=== PATIENT | female | born 1965 | race Hispanic/Latino ===

== ENCOUNTER 2019-04-05 16:32 | Emergency (ER) | payer MEDICAID ==
[~2019-04-05 16:32] MED LIST: CYCL5.5D; DICY10CA13 PO; LATA2.5D2 OU; LORA0.5T2 PO; METO10TA41 PO; TEMA30CA5 PO; TRAM50TA4 PO; VALP250C3 PO; VENL-63 PO; XALA2.5OS OD
[2019-04-05 17:29] LABS: BILIRUBIN,URINE Negative (NEGATIVE); COLOR,URINE Yellow (YELLOW); GLUCOSE, URINE (UA) Negative (NEGATIVE); KETONES,URINE Trace mg/dL (NEGATIVE); LEUKOCYTE ESTERASE ,URINE Trace (NEGATIVE); NITRATE,URINE Negative (NEGATIVE); OCCULT BLOOD,URINE Negative (NEGATIVE); PROTEIN,URINE Negative (NEGATIVE)
[2019-04-05 17:35] LABS: BASOPHILS % (AUTO) 0.5 % (0.0-5.0); EOSINOPHILS % (AUTO) 0.7 % (0.0-8.0); HEMATOCRIT 43.4 % (36-48); LYMPHOCYTES % (AUTO) 34.2 % (21.0-51.0); MEAN CORPUSCULAR HEMOGLOBIN 29.7 pg (27.0-33.0); MEAN CORPUSCULAR HGB CONC 34.2 g/dL (32.0-36.0); MEAN CORPUSCULAR VOLUME 86.9 fL (79-99); MONOCYTES % (AUTO) 10.6 % (3.0-13.0); PLATELET COUNT (AUTO) 153 K/uL (130-400); RED CELL DISTRIBUTION WIDTH 13.6 % (11.0-15.5); WHITE BLOOD COUNT (AUTO) 4.6 K/uL (4.8-10.8)
[2019-04-05 17:38] LABS: AMPHET/METH SCREEN,URINE NEGATIVE (NEGATIVE); BARBITURATE SCREEN, URINE NEGATIVE (NEGATIVE); BENZODIAZEPINES SCREEN,URINE NEGATIVE (NEGATIVE); CANNABINOID SCREEN,URINE POSITIVE (NEGATIVE); COCAINE SCREEN,URINE NEGATIVE (NEGATIVE); OPIATE SCREEN,URINE NEGATIVE (NEGATIVE); PHENCYCLIDINE SCREEN,URINE NEGATIVE (NEGATIVE)
[2019-04-05 17:42] LABS: APPEARANCE,URINE SLIGHTLY CLOUDY (CLEAR)
[2019-04-05 17:43] LABS: BACTERIA,URINE Few /HPF (None Seen); RBC,URINE None Seen /HPF (0-1)
[2019-04-05 17:47] LABS: CARBON DIOXIDE 26 mmol/L (21-32); CHLORIDE 106 mmol/L (101-111); CREATININE 0.7 mg/dL (0.5-1.5); GLOMERULAR FILTR. RATE CALC 93 mL/min (>60); GLUCOSE,RANDOM 129 mg/dL (70-105); POTASSIUM 4.1 mmol/L (3.5-5.1); SODIUM SERUM 144 mmol/L (136-145); UREA NITROGEN, BLOOD 11 mg/dL (7-18)
[2019-04-05 17:52] LABS: ALANINE AMINOTRANSFERASE 29 U/L (12-78); ALCOHOL, BLOOD < 3 mg/dL (0-10); ASPARTATE AMINOTRANSFERASE 25 U/L (10-37); BILIRUBIN,TOTAL 0.5 mg/dL (0.2-1.0); TOTAL PROTEIN, SERUM 7.9 g/dL (6.0-8.3)
[2019-04-05 17:54] LABS: ACETAMINOPHEN < 1 mcg/mL (10-30); SALICYLATE < 2.8 mg/dL (2.8-20.0)
== END 2019-04-05 18:34 | disposition left against medical advice (07) ==
LOC: EDH 16:32
DX: F32.9 Major depressive disorder, single episode, unspecified (principal); Z98.51 Tubal ligation status; Z88.0 Allergy status to penicillin
CPT/HCPCS: 36415; 80053; 80305; 81001; 85025; 99284; G0480 ×2; G0481

== ENCOUNTER 2019-06-16 15:44 | Emergency (ER) | payer MEDICAID | END 2019-06-16 17:07 | disposition home or self-care (01) | LOC: EDH 15:44 | DX: R05 Cough (principal); J45.909 Unspecified asthma, uncomplicated; F31.9 Bipolar disorder, unspecified; F20.9 Schizophrenia, unspecified; F12.90 Cannabis use, unspecified, uncomplicated; Z72.0 Tobacco use ==

== ENCOUNTER 2024-07-20 11:46 | Emergency (ER) | payer MEDICAID ==
[~2024-07-20] VITALS: Ht 165.1 cm; Wt 72.6 kg
[~2024-07-20 11:46] MED LIST changes: -DICY10CA13 PO; -LATA2.5D2 OU; +MOM30 PO; +OMEP40CA21 PO; -TRAM50TA4 PO; -VENL-63 PO; -XALA2.5OS OD
[2024-07-20 12:01] VITALS: TEMP 98.8
[2024-07-20 12:13] LABS: BASOPHILS # (AUTO) 0.03 K/uL (0.00-0.20); BASOPHILS % (AUTO) 0.7 % (0.0-5.0); EOSINOPHILS # (AUTO) 0.06 K/uL (0.00-0.70); EOSINOPHILS % (AUTO) 1.4 % (0.0-8.0); HEMATOCRIT 43.2 % (36-48); IMMATURE GRANULOCYTE ABSOLUTE 0.02 K/uL (0-1); LYMPHOCYTES # (AUTO) 1.5 K/uL (1.0-4.8); LYMPHOCYTES % (AUTO) 35.2 % (21.0-51.0); MEAN CORPUSCULAR HGB CONC 33.3 g/dL (32.0-36.0); MEAN CORPUSCULAR VOLUME 86.9 fL (79-99); MONOCYTES # (AUTO) 0.4 K/uL (0.1-1.0); MONOCYTES % (AUTO) 9.7 % (3.0-13.0); NEUTROPHILS # (AUTO) 2.2 K/uL (1.8-7.7); NEUTROPHILS % (AUTO) 52.5 % (40.0-77.0); PLATELET COUNT (AUTO) 154 K/uL (130-400); RED BLOOD CELL COUNT(AUTO) 4.97 MIL/uL (4.00-5.50); RED CELL DISTRIBUTION WIDTH 13.3 % (11.0-15.5); WHITE BLOOD COUNT (AUTO) 4.2 K/uL (4.8-10.8)
[2024-07-20 12:40] LABS: CARBON DIOXIDE 30 mmol/L (21-32); CHLORIDE 106 mmol/L (101-111); CREATININE 0.9 mg/dL (0.5-1.0); GLOMERULAR FILTR. RATE CALC 74 mL/min (>90); GLUCOSE,RANDOM 97 mg/dL (70-105); POTASSIUM 3.9 mmol/L (3.5-5.1); SODIUM SERUM 140 mmol/L (136-145); UREA NITROGEN, BLOOD 10 mg/dL (7-18)
[2024-07-20 12:44] LABS: ALCOHOL, BLOOD < 3 mg/dL (0-10); CREATINE KINASE, TOTAL 34 U/L (21-232)
[2024-07-20 12:51] LABS: SALICYLATE < 2.8 mg/dL (2.8-20.0)
[2024-07-20 12:52] LABS: ACETAMINOPHEN < 1 mcg/mL (10-30)
[2024-07-20 13:38] VITALS: BP 128/53; PULSE 74; RESP 20; O2SAT 98
== END 2024-07-20 14:49 | disposition left against medical advice (07) ==
LOC: EDH 11:46
DX: Z53.21 Procedure and treatment not carried out due to patient leaving prior to being seen by health care provider (principal); R45.851 Suicidal ideations
CPT/HCPCS: 36415; 80048; 85025; 82550; G0481

== ENCOUNTER 2025-01-09 22:01 | Emergency (ER) | payer MEDICAID ==
[~2025-01-09] VITALS: Ht 157.5 cm; Wt 68.0 kg
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
[2025-01-09 22:55] LABS: BASOPHILS # (AUTO) 0.02 K/uL (0.00-0.20); BASOPHILS % (AUTO) 0.3 % (0.0-5.0); EOSINOPHILS # (AUTO) 0.02 K/uL (0.00-0.70); EOSINOPHILS % (AUTO) 0.3 % (0.0-8.0); HEMATOCRIT 43.7 % (36-48); IMMATURE GRANULOCYTE ABSOLUTE 0.01 K/uL (0-1); LYMPHOCYTES # (AUTO) 1.5 K/uL (1.0-4.8); LYMPHOCYTES % (AUTO) 23.5 % (21.0-51.0); MEAN CORPUSCULAR HEMOGLOBIN 28.9 pg (27.0-33.0); MEAN CORPUSCULAR HGB CONC 34.1 g/dL (32.0-36.0); MEAN CORPUSCULAR VOLUME 84.7 fL (79-99); MONOCYTES # (AUTO) 0.6 K/uL (0.1-1.0); MONOCYTES % (AUTO) 10.1 % (3.0-13.0); NEUTROPHILS # (AUTO) 4.1 K/uL (1.8-7.7); NEUTROPHILS % (AUTO) 65.6 % (40.0-77.0); PLATELET COUNT (AUTO) 165 K/uL (130-400); RED BLOOD CELL COUNT(AUTO) 5.16 MIL/uL (4.00-5.50); RED CELL DISTRIBUTION WIDTH 12.7 % (11.0-15.5); WHITE BLOOD COUNT (AUTO) 6.3 K/uL (4.8-10.8)
[2025-01-09 23:03] LABS: CARBON DIOXIDE 32 mmol/L (21-32); CHLORIDE 101 mmol/L (101-111); CREATININE 0.6 mg/dL (0.5-1.0); GLOMERULAR FILTR. RATE CALC 103 mL/min (>90); GLUCOSE,RANDOM 114 mg/dL (70-105); SODIUM SERUM 136 mmol/L (136-145); UREA NITROGEN, BLOOD 11 mg/dL (7-18)
[2025-01-09 23:08] LABS: ALCOHOL, BLOOD 6 mg/dL (0-10); CREATINE KINASE, TOTAL 302 U/L (21-232)
[2025-01-09] MEDS: ALPRAZolam 0.5 MG TABLET PO ONE (23:09)
[2025-01-09 23:16] LABS: APPEARANCE,URINE CLOUDY (CLEAR); BILIRUBIN,URINE NEGATIVE (NEGATIVE); COLOR,URINE LIGHT-YELLOW (YELLOW); GLUCOSE, URINE (UA) NEGATIVE (NEGATIVE); KETONES,URINE NEGATIVE (NEGATIVE); LEUKOCYTE ESTERASE ,URINE NEGATIVE Leu/uL (NEGATIVE); NITRATE,URINE NEGATIVE (NEGATIVE); OCCULT BLOOD,URINE NEGATIVE (NEGATIVE); PH,URINE 6.5 (5.0-8.0); PROTEIN,URINE NEGATIVE (NEGATIVE); UROBILINOGEN,URINE 0.2 mg/dL (0.2-1.0)
[2025-01-09 23:19] LABS: ADD UA MICROSCOPIC YES
[2025-01-09 23:21] LABS: BACTERIA,URINE FEW /HPF (None Seen); SQUAMOUS EPITHELIAL CELL,UR MOD /HPF (0-2)
[2025-01-09 23:25] LABS: ACETAMINOPHEN < 1 mcg/mL (10-30); SALICYLATE < 2.8 mg/dL (2.8-20.0)
[2025-01-10] MEDS: 0.9%NACL 1000ML 1,000 ML IV ONE
[2025-01-10] MEDS: ALPRAZolam 0.5 MG TABLET PO ONE (02:29)
[2025-01-10 02:46] LABS: AMPHET/METH SCREEN,URINE NEGATIVE (NEGATIVE); BARBITURATE SCREEN, URINE NEGATIVE (NEGATIVE); BENZODIAZEPINES SCREEN,URINE POSITIVE (NEGATIVE); CANNABINOID SCREEN,URINE POSITIVE (NEGATIVE); COCAINE SCREEN,URINE POSITIVE (NEGATIVE); OPIATE SCREEN,URINE NEGATIVE (NEGATIVE); PHENCYCLIDINE SCREEN,URINE NEGATIVE (NEGATIVE)
--- NOTE | 2025-01-10 02:57 | NUR ---
[facility] CRISIS LINE CALLED, PENDING SCREENER
--- NOTE | 2025-01-10 07:00 | NUR ---
BEHAVIORAL HEALTH SCREENER [facility] AT BEDSIDE
--- NOTE | 2025-01-10 07:15 | NUR ---
THOUGHTS OF PERSECUTION. VERBALLY HOSTILE TO STAFF. DENIES SUICIDAL OR HOMICIDAL IDEATION. PACING BACK AND FORTH.
--- NOTE | 2025-01-10 07:28 | NUR ---
AT THIS TIME RESTING CALMLY ON GURNEY.
--- NOTE | 2025-01-10 07:38 | NUR ---
PER BEHAVIORAL HEALTH SCREENER [place]: PATIENT UNBALE TO PROVIDE INFORMATION AND WAS UNCOOPERATIVE. SCREENER TO RETURN LATER TODAY TO RE ATTEMPT SCREENING.
--- NOTE | 2025-01-10 08:51 | NUR ---
[facility] CONTACTED. PATIENT STATES IS READY COOPERATE WITH SCREENING. PT IS AWAKE AND ALERT. STATES IS SEEKING HELP FROM HER PROVIDER FOR A "PSYCHOTIC BREAK," PER PATIENT.
--- NOTE | 2025-01-10 09:37 | NUR ---
[place] [facility]OPICAL SCREENER AT BEDSIDE
--- NOTE | 2025-01-10 11:00 | NUR ---
NO SIGNS OR SYMPTOMS OF ACUTE DISTRESS. WILL CONTINUE TO MONITOR.
--- NOTE | 2025-01-10 13:03 | NUR ---
RESTING COMFORTABLY. NO SIGNS OF ACUTE DISTRESS. WILL CONTINUE TO MONITOR.
--- NOTE | 2025-01-10 14:06 | NUR ---
PER TROPICAL HEALTH SCREENR: PATIENT DOES NOT MEET CRITERIA FOR PLACEMENT. PATIENT REFFERED TO "[facility].
[2025-01-10 14:42] VITALS: BP 127/64; PULSE 72; RESP 14; TEMP 97.9; O2SAT 97
--- NOTE | 2025-01-10 14:56 | NUR ---
[place] [employer] EN ROUTE TO TRANSPORT PATIENT TO [facility]
--- NOTE | 2025-01-10 15:56 | NUR ---
TRANPORTED BY D OFFICER AT THIS TIME TO [facility]
== END 2025-01-10 15:56 | disposition home or self-care (01) ==
LOC: EDH 22:01
DX: F22 Delusional disorders (principal); F31.9 Bipolar disorder, unspecified; F41.9 Anxiety disorder, unspecified; Z79.621 Long term (current) use of calcineurin inhibitor; Z79.899 Other long term (current) drug therapy; Z88.0 Allergy status to penicillin; Z90.49 Acquired absence of other specified parts of digestive tract
CPT/HCPCS: 99283; 82550; 80048; 80305; 85025; 87086; 36415; 81001; G0481

== ENCOUNTER 2025-01-11 17:30 | Emergency (ER) | payer MEDICAID ==
[~2025-01-11] VITALS: Ht 160 cm; Wt 68.0 kg
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
[2025-01-11 18:13] LABS: APPEARANCE,URINE CLEAR (CLEAR); BILIRUBIN,URINE NEGATIVE (NEGATIVE); COLOR,URINE YELLOW (YELLOW); GLUCOSE, URINE (UA) NEGATIVE (NEGATIVE); KETONES,URINE 10 mg/dL (NEGATIVE); LEUKOCYTE ESTERASE ,URINE NEGATIVE Leu/uL (NEGATIVE); NITRATE,URINE NEGATIVE (NEGATIVE); OCCULT BLOOD,URINE NEGATIVE (NEGATIVE); PH,URINE 5.5 (5.0-8.0); PROTEIN,URINE 20 mg/dL (NEGATIVE); UROBILINOGEN,URINE 0.2 mg/dL (0.2-1.0)
[2025-01-11 18:15] LABS: ADD UA MICROSCOPIC YES
[2025-01-11 18:16] LABS: BACTERIA,URINE RARE /HPF (None Seen); MUCUS,URINE MANY LPF (None Seen); RBC,URINE 0-1 /HPF (0-1); SQUAMOUS EPITHELIAL CELL,UR FEW /HPF (0-2); WBC,URINE 0-1 /HPF (0-1)
[2025-01-11 18:25] LABS: AMPHET/METH SCREEN,URINE NEGATIVE (NEGATIVE); BARBITURATE SCREEN, URINE NEGATIVE (NEGATIVE); BENZODIAZEPINES SCREEN,URINE POSITIVE (NEGATIVE); CANNABINOID SCREEN,URINE POSITIVE (NEGATIVE); COCAINE SCREEN,URINE POSITIVE (NEGATIVE); OPIATE SCREEN,URINE NEGATIVE (NEGATIVE); PHENCYCLIDINE SCREEN,URINE NEGATIVE (NEGATIVE)
[2025-01-11 18:36] LABS: BASOPHILS # (AUTO) 0.02 K/uL (0.00-0.20); BASOPHILS % (AUTO) 0.3 % (0.0-5.0); EOSINOPHILS # (AUTO) 0.02 K/uL (0.00-0.70); EOSINOPHILS % (AUTO) 0.3 % (0.0-8.0); IMMATURE GRANULOCYTE ABSOLUTE 0.01 K/uL (0-1); LYMPHOCYTES # (AUTO) 1.4 K/uL (1.0-4.8); LYMPHOCYTES % (AUTO) 20.7 % (21.0-51.0); MEAN CORPUSCULAR HEMOGLOBIN 28.5 pg (27.0-33.0); MEAN CORPUSCULAR HGB CONC 34.2 g/dL (32.0-36.0); MEAN CORPUSCULAR VOLUME 83.3 fL (79-99); MONOCYTES # (AUTO) 0.8 K/uL (0.1-1.0); MONOCYTES % (AUTO) 11.7 % (3.0-13.0); NEUTROPHILS # (AUTO) 4.5 K/uL (1.8-7.7); NEUTROPHILS % (AUTO) 66.8 % (40.0-77.0); PLATELET COUNT (AUTO) 183 K/uL (130-400); RED CELL DISTRIBUTION WIDTH 12.7 % (11.0-15.5); WHITE BLOOD COUNT (AUTO) 6.7 K/uL (4.8-10.8)
[2025-01-11 18:43] LABS: CARBON DIOXIDE 31 mmol/L (21-32); CHLORIDE 99 mmol/L (101-111); CREATININE 0.8 mg/dL (0.5-1.0); GLOMERULAR FILTR. RATE CALC 85 mL/min (>90); GLUCOSE,RANDOM 116 mg/dL (70-105); POTASSIUM 3.4 mmol/L (3.5-5.1); SODIUM SERUM 137 mmol/L (136-145); UREA NITROGEN, BLOOD 17 mg/dL (7-18)
[2025-01-11 18:47] LABS: ALCOHOL, BLOOD < 3 mg/dL (0-10)
--- NOTE | 2025-01-11 18:48 | HMCIMG ---
ABD 1VW CLINICAL HISTORY: CONSTIPATION FOUR DAYS COMPARISON: None TECHNIQUE: Single view of the chest was obtained. FINDINGS: Lungs are clear. The cardiac size and mediastinum are unremarkable. The bony structures are within normal limits. IMPRESSION: No acute cardiopulmonary process identified.
[2025-01-11 18:49] LABS: ACETAMINOPHEN < 1 mcg/mL (10-30); SALICYLATE < 2.8 mg/dL (2.8-20.0)
--- NOTE | 2025-01-11 19:55 | HMCIMG ---
ABD 1VW CLINICAL HISTORY: CONSTIPATION FOUR DAYS COMPARISON: None FINDINGS: Single view of the abdomen was obtained. There are multiple air-filled prominent loops of small bowel with no obvious dilatation or obstruction. The colon appears grossly unremarkable. IMPRESSION: Findings most suggestive of enteritis.
[2025-01-11 22:02] VITALS: BP 147/71; PULSE 91; RESP 18; TEMP 98; O2SAT 98
== END 2025-01-11 22:03 | disposition home or self-care (01) ==
LOC: EDH 17:30
DX: F22 Delusional disorders (principal); F31.9 Bipolar disorder, unspecified; F19.10 Other psychoactive substance abuse, uncomplicated; K59.00 Constipation, unspecified; E87.6 Hypokalemia; F20.9 Schizophrenia, unspecified; F41.9 Anxiety disorder, unspecified; J45.909 Unspecified asthma, uncomplicated; Z79.621 Long term (current) use of calcineurin inhibitor; Z79.899 Other long term (current) drug therapy; Z88.0 Allergy status to penicillin
CPT/HCPCS: 99285; 80048; 80305; 85025; 36415; 74018 ×2; 81001; G0481; 99284

== ENCOUNTER 2025-06-20 13:54 | Emergency (ER) | payer MEDICAID ==
[~2025-06-20] VITALS: Ht 160 cm; Wt 65.8 kg
--- NOTE | 2025-06-20 13:56 | NUR ---
PT ARRIVED TO FACILITY VIA EMS. PT STATES SHE IS CURRENTLY HAVING SUICIDAL THOUGHTS WITH A PLAN IN PLACE. HER CURRENT PLAN IS TO "TAKE A BUNCH OF PILLS". DENIES HI. STATES SHE HAS BEEN HEARING VOICES SINCE YESTERDAY AND THEY ARE TELLING HER TO KILL HERSELF. PATIENT BELONGINGS HAVE BEEN GIVEN TO SECURITY. REFUSES TO BE PLACED IN PAPER SCRUBS AND REFUSES TO PROVIDE URINE SAMPLE AT THIS TIME. MD SCHUMACHER
--- NOTE | 2025-06-20 14:11 | NUR ---
PERSONAL MEDICATIONS REMOVED FROM BEDSIDE AND PLACED AT NURSES STATION. PHARMACY WAS CALLED AND PER SADIQ, MEDICATIONS CAN BE HELD AT NURSES STATION UNTIL ADMISSION IS INITIATED.
[2025-06-20 14:45] VITALS: BP 132/76; PULSE 68; RESP 20; TEMP 98.5; O2SAT 99
[2025-06-20 14:56] LABS: IMMATURE GRANULOCYTE ABSOLUTE 0.01 K/uL (0-1); NUCLEATED RED BLOOD CELLS 0.0 % (0.0-0.19); PLATELET COUNT (AUTO) 186 K/uL (130-400); RED BLOOD CELL COUNT(AUTO) 4.29 MIL/uL (4.00-5.50); RED CELL DISTRIBUTION WIDTH 12.9 % (11.0-15.5); WHITE BLOOD COUNT (AUTO) 6.1 K/uL (4.8-10.8)
[2025-06-20 15:09] LABS: CREATININE 0.6 mg/dL (0.5-1.0); GLOMERULAR FILTR. RATE CALC 103 mL/min (>90); GLUCOSE,RANDOM 99 mg/dL (70-105); SODIUM SERUM 137 mmol/L (136-145); UREA NITROGEN, BLOOD 10 mg/dL (7-18)
[2025-06-20 15:14] LABS: ALCOHOL, BLOOD < 3 mg/dL (0-10); CREATINE KINASE, TOTAL 125 U/L (21-232)
[2025-06-20 15:29] LABS: AMPHET/METH SCREEN,URINE NEGATIVE (NEGATIVE); BARBITURATE SCREEN, URINE NEGATIVE (NEGATIVE); CANNABINOID SCREEN,URINE NEGATIVE (NEGATIVE); COCAINE SCREEN,URINE POSITIVE (NEGATIVE)
--- NOTE | 2025-06-20 16:22 | NUR ---
CALLED [facility]OTLINE TO REQUEST SCREENER. PT IS CURRENTLY CALM AND COOPERATIVE AT THIS TIME.
--- NOTE | 2025-06-20 16:24 | ERN ---
General Chief Complaint: Suicidal Ideation Stated Complaint: SUICIDAL IDEATION Time Seen by MD: 13:59 History of Present Illness Initial Comments 59-year-old female history of bipolar schizophrenia who presents for suicidal ideation and auditory hallucinations. She reports that she feels paranoid. She takes multiple psychiatric medications but reports that she did not think they are working. She reports that she earlier took some cocaine to try to reduce the voices in her head. She denies any medical conditions or complaints otherwise. Allergies: Coded Allergies: Penicillins (Unverified Allergy, Unknown, 04/05/19) Home Meds Reported Medications Magnesium Hydroxide (Milk of Magnesium 30Ml) 30 Ml/Udcup Susp, 30 ML PO AD, ML 12/03/19 Omeprazole (Omeprazole) 40 Mg Capsule.dr, 40 MG PO DAILY, CAP 12/03/19 Lorazepam (Lorazepam) 0.5 Mg Tablet, 0.5 MG PO AD PRN for ANXIETY, TAB 05/14/18 Metoclopramide HCl (Reglan 10 mg Tab) 10 Mg Tablet, 10 MG PO QID, TAB 05/14/18 Temazepam (Restoril) 30 Mg Capsule, 30 MG PO HS, CAP 05/14/18 Cyclosporine (Restasis Multidose) 5.5 Ml Drops, 1 DROP .AD BID, DROP 02/16/17 Valproic Acid (Valproic Acid) 250 Mg Capsule, 250 MG PO TID, CAP 02/16/17 Past Medical History Past Medical History: Anxiety, Asthma, Bipolar, Depression, GERD, Liver Disease, Schizophrenia Past Surgical History: None Surgical History Other: BACK AND NECK PAIN Family History Family History: Negative Female( History) History: Not Applicable ROS Dictation CONSTITUTIONAL: No chills, no fever, no weakness, no diaphoresis, no malaise. HEAD/FACE: No signs of trauma. EENT: No eye pain, no blurred vision, no tearing, no double vision, no ear pain, no ear discharge, no nose pain, no nasal congestion, no throat pain, no throat swelling, no mouth pain. RESPIRATORY: No cough, no orthopnea, no SOB, no stridor, no wheezing. CARDIOVASCULAR: No chest pain, no edema, no palpitations, no syncope. GASTROINTESTINAL/ABDOMINAL: No abdominal pain, no constipation, no diarrhea, no nausea, no vomiting. GENITOURINARY: No abnormal discharge, no dysuria, no frequent urination, no hematuria. No complaints of pain in the genitals. MUSCULOSKELETAL: No back pain, no gout, no joint pain, no joint swelling, no muscle pain, no muscle stiffness, no neck pain. INTEGUMENTARY: No change in color, no change in hair/nails, no dryness, no lesion, no lumps, no rash. NEUROLOGICAL/PSYCH: No anxiety, not depressed, no emotional problem, no headache, no numbness, no pre-existing deficit, no history of seizures, no tremors, no weakness. HEMATOLOGIC/LYMPHATIC: Not anemic, no history of blood clots, no apparent bleeding, no bruising, glands not swollen. All Systems Negative, Except as Noted. Physical Exam Physical Exam Dictation VITAL SIGNS: Reviewed. GENERAL APPEARANCE: Alert, oriented x3, no acute distress. HEAD AND FACE: Non-traumatic. EYES: PERRL, pink conjunctivas, eyelid no trauma, anterior chamber clear. EARS: Pinnas intact and no signs of trauma or erythema. Ear canals clear and no discharge. TMs no erythema. NOSE: No discharge, no bleeding. OROPHARYNX: Mouth normal, teeth no caries, tongue pink. Pharynx clear, no erythema. Tonsils no exudates, no abscesses noted. Mucous membrane moist. NECK: Supple, non-tender, no thyromegaly, no masses, no JVD, no bruits. BREAST: Deferred. CHEST: No tenderness, no crepitus, no paradoxical movement, no retractions. LUNGS: Clear, well-ventilated, symmetric, no rales, no wheezing, no rhonchi, no stridor, good breath sounds bilaterally. HEART: Regular rate, regular rhythm, no murmur, no gallops. VASCULAR: No peripheral edema. ABDOMEN: Soft, positive bowel sounds, nondistended, no guarding, nontender, no rebound, no masses no hepatomegaly, no splenomegaly, no Chau's sign, no hernias. RECTAL: Deferred. GENITAL: Deferred. NEUROLOGICAL: Normal speech, gross motor function intact, gross sensory function intact. MUSCULOSKELETAL: Neck nontender, full range of motion, back nontender, full range of motion. EXTREMITIES: Nontender, full range of motion. SKIN: Color pink, dry, no turgor, no rash, no lacerations, no abrasions, no contusions. LYMPHATICS: Deferred. Results Laboratory and Microbiology Lab and Micro Result Laboratory Tests Test 06/20/25 14:17 06/20/25 15:10 White Blood Count 6.1 K/uL (4.8-10.8) Red Blood Count 4.29 MIL/uL (4.00-5.50) Hemoglobin 12.7 g/dL (12.0-16.0) Hematocrit 38.0 % (36-48) Mean Corpuscular Volume 88.6 fL (79-99) Mean Corpuscular Hemoglobin 29.6 pg (27.0-33.0) Mean Corpuscular Hemoglobin Concent 33.4 g/dL (32.0-36.0) Red Cell Distribution Width 12.9 % (11.0-15.5) Platelet Count 186 K/uL (130-400) Mean Platelet Volume 11.8 fL (7.5-10.5) H Immature Granulocyte % (Auto) 0.2 % (0-1) Neutrophils (%) (Auto) 66.6 % (40.0-77.0) Lymphocytes (%) (Auto) 19.5 % (21.0-51.0) L Monocytes (%) (Auto) 12.3 % (3.0-13.0) Eosinophils (%) (Auto) 1.1 % (0.0-8.0) Basophils (%) (Auto) 0.3 % (0.0-5.0) Neutrophils # (Auto) 4.1 K/uL (1.8-7.7) Lymphocytes # (Auto) 1.2 K/uL (1.0-4.8) Monocytes # (Auto) 0.8 K/uL (0.1-1.0) Eosinophils # (Auto) 0.07 K/uL (0.00-0.70) Basophils # (Auto) 0.02 K/uL (0.00-0.20) Absolute Immature Granulocyte (auto 0.01 K/uL (0-1) Nucleated Red Blood Cells 0.0 % (0.0-0.19) Sodium Level 137 mmol/L (136-145) Potassium Level 3.3 mmol/L (3.5-5.1) L Chloride Level 103 mmol/L (101-111) Carbon Dioxide Level 28 mmol/L (21-32) Blood Urea Nitrogen 10 mg/dL (7-18) Creatinine 0.6 mg/dL (0.5-1.0) Glomerular Filtration Rate Calc 103 mL/min (>90) Random Glucose 99 mg/dL (70-105) Total Calcium 9.5 mg/dL (8.5-10.1) Total Creatine Kinase 125 U/L (21-232) # Salicylates Level < 2.8 mg/dL (2.8-20.0) L Acetaminophen Level < 1 mcg/mL (10-30) L Serum Alcohol < 3 mg/dL (0-10) Urine Opiates Screen NEGATIVE (NEGATIVE) Urine Barbiturates Screen NEGATIVE (NEGATIVE) Urine Phencyclidine Screen NEGATIVE (NEGATIVE) Urine Amphetamines Screen NEGATIVE (NEGATIVE) Urine Benzodiazepines Screen NEGATIVE (NEGATIVE) Urine Cocaine Screen POSITIVE (NEGATIVE) H Urine Marijuana (THC) Screen NEGATIVE (NEGATIVE) MDM CC: Auditory hallucinations suicidal ideation Historian: Patient Comorbidities: Depression, bipolar disorder, anxiety, schizophrenia, liver disease Limitations by social determinants of health: None Differential diagnosis: SI, HI, drug abuse, other. Clinical exam patient appears to be having a psych your up she had disorder. There was no signs of physical injury or trauma or other illness. Vital signs: Stable, remained stable here in the ER. Labs normal CBC, normal chemistry, salicylate Tylenol, alcohol level is negative. UDS positive for cocaine, patient endorses this. No other imaging indicated Labs interpreted by me Patient is medically cleared. Patient given olanzapine oral here in the ER. While the patient was pending evaluation from [facility], the patient reports she wants to leave. She is no longer suicidal. She has no plan. We will DC. ED Course Orders Procedure Category Date Status Time Cbc With Differential LAB 06/20/25 Complete 14:01 Alcohol, Blood LAB 06/20/25 Complete 14:01 Salicylate LAB 06/20/25 Complete 14:01 Acetaminophen LAB 06/20/25 Complete 14:01 Creatine Kinase, Total LAB 06/20/25 Complete 14:01 Basic Metabolic Panel LAB 06/20/25 Complete 14:01 Drug Screen Urine LAB 06/20/25 Complete 14:01 Olanzapine 5 Mg Tab PHA 06/20/25 Complete (Zyprexa 5 Mg Tab) 14:30 Current Medications Medications (Trade) Dose Ordered Sig/Fran Route PRN Reason Start Time Stop Time Status Last Admin Dose Admin Olanzapine (ZyPREXA 5 mg tab) 10 mg ONCE ONCE PO 06/20/25 14:30 06/20/25 14:31 DC 06/20/25 14:18 Vital Signs Date Time Temp Pulse Resp B/P (MAP) Pulse Ox O2 Delivery O2 Flow Rate FiO2 06/20/25 14:45 98.4 68 20 132/76 99 Room Air* 0 21 06/20/25 13:56 98.8 75 20 135/84 98 Room Air DX & DISP Disposition: AMA Departure Impression: Primary Impression: Suicidal ideation Additional Impressions: Polydrug abuse, Bipolar disorder, Psychosis Condition: Against Medical Advice Referrals: ALYSSA MARTÍNEZ MD (PCP) DEB BLANCO DO Jun 20, 2025 16:24
--- NOTE | 2025-06-20 16:39 | NUR ---
PT IS CURRENTLY STATING SHE WISHES TO GO HOME. PT STATES "NOBODY IS DOING ANYTHING FOR ME IN THIS FACILITY AND I NEED TO TAKE CARE OF MYSELF." PT WAS EDUCATED ON RISKS OF LEAVING THE FACILITY AGAINST MEDICAL ADVICE AND WAS ADVISED THAT THE SCREENER FOR [facility] WAS ALREADY ON THEIR WAY. PT REFUSES TO STAY. AMA FORM PRESENTED.
--- NOTE | 2025-06-20 17:14 | NUR ---
[facility] MADE AWARE OF PATIENT LEAVING FACILITY AMA. SPOKE WITH JARROD FROM [facility].
== END 2025-06-20 17:17 | disposition left against medical advice (07) ==
LOC: EDH 13:54
DX: R45.851 Suicidal ideations (principal); F31.9 Bipolar disorder, unspecified; F20.9 Schizophrenia, unspecified; F41.9 Anxiety disorder, unspecified; Z79.621 Long term (current) use of calcineurin inhibitor; J45.909 Unspecified asthma, uncomplicated; K21.9 Gastro-esophageal reflux disease without esophagitis; Z88.0 Allergy status to penicillin; Z79.899 Other long term (current) drug therapy
CPT/HCPCS: 99283; 82550; 80048; 80305; 85025; 36415; G0481

== ENCOUNTER 2025-08-18 14:14 | Emergency (ER) | payer MEDICAID ==
[~2025-08-18] VITALS: Ht 160 cm; Wt 68.0 kg
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
[2025-08-18 15:04] LABS: APPEARANCE,URINE TURBID (CLEAR); GLUCOSE, URINE (UA) NEGATIVE (NEGATIVE); LEUKOCYTE ESTERASE ,URINE NEGATIVE Leu/uL (NEGATIVE); NITRATE,URINE NEGATIVE (NEGATIVE); OCCULT BLOOD,URINE NEGATIVE (NEGATIVE)
[2025-08-18 15:06] LABS: ADD UA MICROSCOPIC YES
[2025-08-18 15:09] LABS: SQUAMOUS EPITHELIAL CELL,UR FEW /HPF (0-2); WBC CLUMP FEW /HPF (0-1)
[2025-08-18 15:11] LABS: AMPHET/METH SCREEN,URINE NEGATIVE (NEGATIVE); BARBITURATE SCREEN, URINE NEGATIVE (NEGATIVE); CANNABINOID SCREEN,URINE NEGATIVE (NEGATIVE); COCAINE SCREEN,URINE POSITIVE (NEGATIVE)
[2025-08-18 15:13] LABS: IMMATURE GRANULOCYTE ABSOLUTE 0.02 K/uL (0-1); NUCLEATED RED BLOOD CELLS 0.0 % (0.0-0.19); PLATELET COUNT (AUTO) 196 K/uL (130-400); RED BLOOD CELL COUNT(AUTO) 4.56 MIL/uL (4.00-5.50); RED CELL DISTRIBUTION WIDTH 13.2 % (11.0-15.5); WHITE BLOOD COUNT (AUTO) 6.6 K/uL (4.8-10.8)
[2025-08-18 15:21] LABS: CREATININE 0.8 mg/dL (0.5-1.0); GLOMERULAR FILTR. RATE CALC 84 mL/min (>90); GLUCOSE,RANDOM 84 mg/dL (70-105); SODIUM SERUM 144 mmol/L (136-145); UREA NITROGEN, BLOOD 13 mg/dL (7-18)
[2025-08-18 15:25] LABS: ALCOHOL, BLOOD < 3 mg/dL (0-10)
[2025-08-18 17:20] VITALS: BP 136/87; PULSE 84; RESP 20; TEMP 98.2; O2SAT 97
--- NOTE | 2025-08-18 17:20 | NUR ---
PT AMBULATING WITHOUT ASSISTANCE,NAD,NO IV IN PLACE.
== END 2025-08-18 17:21 | disposition home or self-care (01) ==
LOC: EDH 14:14
DX: F14.10 Cocaine abuse, uncomplicated (principal); F20.9 Schizophrenia, unspecified; F41.9 Anxiety disorder, unspecified; J45.909 Unspecified asthma, uncomplicated; F31.9 Bipolar disorder, unspecified; Z88.0 Allergy status to penicillin; K21.9 Gastro-esophageal reflux disease without esophagitis; Z79.899 Other long term (current) drug therapy; Z79.621 Long term (current) use of calcineurin inhibitor
CPT/HCPCS: 99283; 80048; 80305; 85025; 87086; 36415; 81001; G0481

== ENCOUNTER 2025-08-31 12:31 | Emergency (ER) | payer MEDICAID ==
[~2025-08-31] VITALS: Ht 170.2 cm; Wt 74.8 kg
[2025-08-31 13:04] LABS: IMMATURE GRANULOCYTE ABSOLUTE 0.01 K/uL (0-1); NUCLEATED RED BLOOD CELLS 0.0 % (0.0-0.19); PLATELET COUNT (AUTO) 149 K/uL (130-400); RED BLOOD CELL COUNT(AUTO) 4.44 MIL/uL (4.00-5.50); RED CELL DISTRIBUTION WIDTH 13.1 % (11.0-15.5); WHITE BLOOD COUNT (AUTO) 5.3 K/uL (4.8-10.8)
[2025-08-31 13:14] LABS: CREATININE 0.7 mg/dL (0.5-1.0); GLOMERULAR FILTR. RATE CALC 99 mL/min (>90); GLUCOSE,RANDOM 104 mg/dL (70-105); SODIUM SERUM 141 mmol/L (136-145); UREA NITROGEN, BLOOD 16 mg/dL (7-18)
[2025-08-31 13:19] LABS: ALCOHOL, BLOOD < 3 mg/dL (0-10); CREATINE KINASE, TOTAL 134 U/L (21-232)
[2025-08-31] MEDS: 0.9%NACL 1000ML 1,000 ML IV ONE (13:35)
[2025-08-31 13:53] LABS: APPEARANCE,URINE CLEAR (CLEAR); GLUCOSE, URINE (UA) NEGATIVE (NEGATIVE); LEUKOCYTE ESTERASE ,URINE NEGATIVE Leu/uL (NEGATIVE); NITRATE,URINE NEGATIVE (NEGATIVE); OCCULT BLOOD,URINE NEGATIVE (NEGATIVE)
[2025-08-31 13:57] LABS: ADD UA MICROSCOPIC NO
[2025-08-31 14:01] LABS: AMPHET/METH SCREEN,URINE NEGATIVE (NEGATIVE); BARBITURATE SCREEN, URINE NEGATIVE (NEGATIVE); CANNABINOID SCREEN,URINE NEGATIVE (NEGATIVE); COCAINE SCREEN,URINE POSITIVE (NEGATIVE)
--- NOTE | 2025-08-31 14:15 | HMCIMG ---
EXAM: CR Chest, 1 View. CLINICAL HISTORY: CP COMPARISON: None provided. FINDINGS: LUNGS: There is no mass, infiltrate, or acute pulmonary abnormality. PLEURAL SPACES: No evidence of pleural effusion or pneumothorax. MEDIASTINUM: The cardiomediastinal silhouette is within normal limits. BONES: No acute osseous abnormality. IMPRESSION: 1. No acute cardiopulmonary findings. /Skipwith
--- NOTE | 2025-08-31 17:16 | ERN ---
General Chief Complaint: Medical Clearance Stated Complaint: LETHARGIC Time Seen by MD: 12:32 Source: patient History of Present Illness Initial Comments PATIENT IS A 60-YEAR-OLD FEMALE COMING IN TO BE MEDICALLY SCREENED FOR PSYCHIATRIC INCARCERATION. PER PATIENT SHE HAS BEEN DOING UNKNOWN SUBSTANCE AND CAME IN FOR FURTHER EVALUATION. Allergies: Coded Allergies: Penicillins (Unverified Allergy, Unknown, 04/05/19) Home Meds Reported Medications Magnesium Hydroxide (Milk of Magnesium 30Ml) 30 Ml/Udcup Susp, 30 ML PO AD, ML 12/03/19 Omeprazole (Omeprazole) 40 Mg Capsule.dr, 40 MG PO DAILY, CAP 12/03/19 Lorazepam (Lorazepam) 0.5 Mg Tablet, 0.5 MG PO AD PRN for ANXIETY, TAB 05/14/18 Metoclopramide HCl (Reglan 10 mg Tab) 10 Mg Tablet, 10 MG PO QID, TAB 05/14/18 Temazepam (Restoril) 30 Mg Capsule, 30 MG PO HS, CAP 05/14/18 Cyclosporine (Restasis Multidose) 5.5 Ml Drops, 1 DROP .AD BID, DROP 02/16/17 Valproic Acid (Valproic Acid) 250 Mg Capsule, 250 MG PO TID, CAP 02/16/17 Past Medical History Past Medical History: Anxiety, Asthma, Bipolar, Depression, GERD, Liver Disease, Schizophrenia Past Surgical History: None Surgical History Other: BACK AND NECK PAIN Family History Family History: Negative Female( History) History: Not Applicable ROS Dictation CONSTITUTIONAL: NO CHILLS, NO FEVER, WEAKNESS, NO DIAPHORESIS, NO MALAISE. HEAD/FACE: NO SIGNS OF TRAUMA. EENT: NO EYE PAIN, NO BLURRED VISION, NO TEARING, NO DOUBLE VISION, NO EAR PAIN, NO EAR DISCHARGE, NO NOSE PAIN, NO NASAL CONGESTION, NO THROAT PAIN, NO THROAT SWELLING, NO MOUTH PAIN. RESPIRATORY: NO COUGH, NO ORTHOPNEA, NO SOB, NO STRIDOR, NO WHEEZING. CARDIOVASCULAR: NO CHEST PAIN, NO EDEMA, NO PALPITATIONS, NO SYNCOPE. GASTROINTESTINAL/ABDOMINAL: NO ABDOMINAL PAIN, NO CONSTIPATION, NO DIARRHEA, NO NAUSEA, NO VOMITING. GENITOURINARY: NO ABNORMAL DISCHARGE, NO DYSURIA, NO FREQUENT URINATION, NO HEMATURIA. NO COMPLAINTS OF PAIN IN THE GENITALS. MUSCULOSKELETAL: NO BACK PAIN, NO GOUT, NO JOINT PAIN, NO JOINT SWELLING, NO MUSCLE PAIN, NO MUSCLE STIFFNESS, NO NECK PAIN. INTEGUMENTARY: NO CHANGE IN COLOR, NO CHANGE IN HAIR/NAILS, NO DRYNESS, NO LESION, NO LUMPS, NO RASH. NEUROLOGICAL/PSYCH: NO ANXIETY, NOT DEPRESSED, NO EMOTIONAL PROBLEM, NO HEADACHE, NO NUMBNESS, NO PRE-EXISTING DEFICIT, NO HISTORY OF SEIZURES, NO TREMORS, NO WEAKNESS. HEMATOLOGIC/LYMPHATIC: NOT ANEMIC, NO HISTORY OF BLOOD CLOTS, NO APPARENT BLEEDING, NO BRUISING, GLANDS NOT SWOLLEN. ALL SYSTEMS NEGATIVE, EXCEPT NOTED. Physical Exam Physical Exam Dictation VITAL SIGNS: REVIEWED. GENERAL APPEARANCE: ALERT, ORIENTED X1, NO ACUTE DISTRESS, OBESE. HEAD AND FACE: NON-TRAUMATIC. EYES: PERRL, PINK CONJUNCTIVAS, EYELID NO TRAUMA, ANTERIOR CHAMBER CLEAR. EARS: PINNAS INTACT AND NO SIGNS OF TRAUMA OR ERYTHEMA. EAR CANALS CLEAR AND NO DISCHARGE. TMS NO ERYTHEMA. NOSE: NO DISCHARGE, NO BLEEDING. OROPHARYNX: MOUTH NORMAL, TEETH NO CARIES, TONGUE PINK. PHARYNX CLEAR, NO ERYTHEMA. TONSILS NO EXUDATES, NO ABSCESSES NOTED. MUCOUS MEMBRANE MOIST. NECK: SUPPLE, NON-TENDER, NO THYROMEGALY, NO MASSES, NO JVD, NO BRUITS. BREAST: DEFERRED. CHEST: NO TENDERNESS, NO CREPITUS, NO PARADOXICAL MOVEMENT, NO RETRACTIONS. LUNGS: CLEAR, WELL-VENTILATED, SYMMETRIC, NO RALES, NO WHEEZING, NO RHONCHI, NO STRIDOR, GOOD BREATH SOUNDS BILATERALLY. HEART: REGULAR RATE, REGULAR RHYTHM, NO MURMUR, NO GALLOPS. VASCULAR: NO PERIPHERAL EDEMA. ABDOMEN: SOFT, POSITIVE BOWEL SOUNDS, NONDISTENDED, NO GUARDING, NONTENDER, NO REBOUND, NO MASSES NO HEPATOMEGALY, NO SPLENOMEGALY, NO ELAINE'S SIGN, NO HERNIAS. RECTAL: DEFERRED. GENITAL: DEFERRED. NEUROLOGICAL: NORMAL SPEECH, GROSS MOTOR FUNCTION INTACT, GROSS SENSORY FUNC TION INTACT. MUSCULOSKELETAL: NECK NONTENDER, FULL RANGE OF MOTION, BACK NONTENDER, FULL RANGE OF MOTION. EXTREMITIES: NONTENDER, FULL RANGE OF MOTION. SKIN: COLOR PINK, DRY, NO TURGOR, NO RASH, NO LACERATIONS, NO ABRASIONS, NO CONTUSIONS. LYMPHATICS: DEFERRED. Results Laboratory and Microbiology Lab and Micro Result Laboratory Tests Test 08/31/25 12:50 08/31/25 13:39 White Blood Count 5.3 K/uL (4.8-10.8) Red Blood Count 4.44 MIL/uL (4.00-5.50) Hemoglobin 12.7 g/dL (12.0-16.0) Hematocrit 40.7 % (36-48) Mean Corpuscular Volume 91.7 fL (79-99) Mean Corpuscular Hemoglobin 28.6 pg (27.0-33.0) Mean Corpuscular Hemoglobin Concent 31.2 g/dL (32.0-36.0) L Red Cell Distribution Width 13.1 % (11.0-15.5) Platelet Count 149 K/uL (130-400) Mean Platelet Volume 11.3 fL (7.5-10.5) H Immature Granulocyte % (Auto) 0.2 % (0-1) Neutrophils (%) (Auto) 65.8 % (40.0-77.0) Lymphocytes (%) (Auto) 24.1 % (21.0-51.0) Monocytes (%) (Auto) 8.9 % (3.0-13.0) Eosinophils (%) (Auto) 0.6 % (0.0-8.0) Basophils (%) (Auto) 0.4 % (0.0-5.0) Neutrophils # (Auto) 3.5 K/uL (1.8-7.7) Lymphocytes # (Auto) 1.3 K/uL (1.0-4.8) Monocytes # (Auto) 0.5 K/uL (0.1-1.0) Eosinophils # (Auto) 0.03 K/uL (0.00-0.70) Basophils # (Auto) 0.02 K/uL (0.00-0.20) Absolute Immature Granulocyte (auto 0.01 K/uL (0-1) Nucleated Red Blood Cells 0.0 % (0.0-0.19) Sodium Level 141 mmol/L (136-145) Potassium Level 3.7 mmol/L (3.5-5.1) Chloride Level 106 mmol/L (101-111) Carbon Dioxide Level 24 mmol/L (21-32) Blood Urea Nitrogen 16 mg/dL (7-18) Creatinine 0.7 mg/dL (0.5-1.0) Glomerular Filtration Rate Calc 99 mL/min (>90) Random Glucose 104 mg/dL (70-105) Total Calcium 9.1 mg/dL (8.5-10.1) Total Creatine Kinase 134 U/L (21-232) Salicylates Level < 2.8 mg/dL (2.8-20.0) L Acetaminophen Level < 1 mcg/mL (10-30) L Serum Alcohol < 3 mg/dL (0-10) Urine Color LIGHT-YELLOW (YELLOW) Urine Appearance CLEAR (CLEAR) Urine pH 5.0 (5.0-8.0) Urine Specific Wiley 1.011 (1.001-1.031) Urine Protein NEGATIVE mg/dL (NEGATIVE) Urine Glucose (UA) NEGATIVE mg/dL (NEGATIVE) Urine Ketones NEGATIVE mg/dL (NEGATIVE) Urine Occult Blood NEGATIVE (NEGATIVE) Urine Nitrate NEGATIVE (NEGATIVE) Urine Bilirubin NEGATIVE mg/dL (NEGATIVE) Urine Urobilinogen 0.2 mg/dL (0.2-1.0) Urine Leukocyte Esterase NEGATIVE [place]/uL Urine Opiates Screen NEGATIVE (NEGATIVE) Urine Barbiturates Screen NEGATIVE (NEGATIVE) Urine Phencyclidine Screen NEGATIVE (NEGATIVE) Urine Amphetamines Screen NEGATIVE (NEGATIVE) Urine Benzodiazepines Screen NEGATIVE (NEGATIVE) Urine Cocaine Screen POSITIVE (NEGATIVE) H Urine Marijuana (THC) Screen NEGATIVE (NEGATIVE) Labs Reviewed?: Yes MDM MDM: DIFFERENTIAL DIAGNOSIS: ANXIETY, PSYCHIATRIC ILLNESS, RATIONALE: TESTS CONSIDERED AND ORDERED SECONDARY TO SHARED DECISION MAKING INCLUDE: PREVIOUS OUTSIDE RECORDS REVIEWED: OLD ER VISITS. RISK OF COMPLICATION AND/OR MORBIDITY OR MORTALITY OF PATIENT MANAGEMENT: NONE MEDICATIONS-PER MEDICATION RECONCILIATION NEED FOR HOSPITALIZATION: PATIENT DOES NOT MEET CRITERIA FOR HOSPITALIZATION. NEED FOR EMERGENCY MAJOR/MINOR SURGERY: NO MEDICALLY CLEAR TO BE EVALUATED BY PSYCHIATRIC FACILITY. PER PSYCHIATRIC FACILITY PATIENT WILL BE EVALUATED AT THEIR FACILITY. PATIENT IS STABLE ENOUGH TO GO BACK TO PSYCHIATRIC FACILITY. PATIENT DOES HAS A HISTORY OF CHRONIC PSYCHIATRIC DISORDERS INCLUDING BIPOLAR ED Course Orders Procedure Category Date Status Time Cbc With Differential LAB 08/31/25 Complete 12:34 Alcohol, Blood LAB 08/31/25 Complete 12:34 Salicylate LAB 08/31/25 Complete 12:34 Acetaminophen LAB 08/31/25 Complete 12:34 Urinalysis Profile LAB 08/31/25 Complete 12:34 Chest 1vw RAD 08/31/25 Resulted 12:34 Creatine Kinase, Total LAB 08/31/25 Complete 12:34 Basic Metabolic Panel LAB 08/31/25 Complete 12:34 Drug Screen Urine LAB 08/31/25 Complete 12:34 0.9%Nacl 1000ml (Ns PHA 08/31/25 Complete 1000ml) 13:30 Current Medications Medications (Trade) Dose Ordered Sig/Fran Route PRN Reason Start Time Stop Time Status Last Admin Dose Admin Sodium Chloride 1,000 ml @ 0 mls/hr ONCE ONCE IV 08/31/25 13:30 08/31/25 13:31 DC 08/31/25 13:35 Vital Signs Date Time Temp Pulse Resp B/P (MAP) Pulse Ox O2 Delivery O2 Flow Rate FiO2 08/31/25 17:45 97.2 78 16 131/70 99 Room Air* 0 21 08/31/25 16:38 75 18 124/65 97 Room Air* 0 21 08/31/25 13:57 76 18 108/78 97 Room Air* 0 08/31/25 12:32 98.2 68 16 123/67 98 Room Air 0 DX & DISP Disposition: Discharge Departure Impression: Primary Impression: Auditory hallucination Additional Impressions: Cocaine abuse, Bipolar disorder, Paranoid delusion Condition: Stable Additional Instructions: FOLLOW-UP WITH PRIMARY CARE PROVIDER IN 1 TO 2 DAYS. TAKE MEDICATIONS DIRECTED HERE IN THE EMERGENCY ROOM. OKAY TO CONTINUE HOME MEDICATIONS UNLESS OTHERWISE DISCUSSED DURING YOUR VISIT IN THE EMERGENCY ROOM TODAY. RETURN TO YOUR NEAREST EMERGENCY ROOM IF SYMPTOMS WORSEN OR IF THERE IS NO IMPROVEMENT. CALL 911 IF YOU NEED IMMEDIATE ASSISTANCE. TAKE TYLENOL [id number] NEEDED AND IF NO CONTRAINDICATIONS ARE PRESENT. INCREASE ORAL HYDRATION. A WOUND CULTURE OR URINE CULTURE WAS ORDERED HERE IN THE EMERGENCY ROOM DEPARTMENT PLEASE FOLLOW-UP WITH PRIMARY CARE PROVIDER AND ADVISE THEM TO GET REPORTS FROM OUR FACILITY. IF YOU HAD ANY KATHARINE WRAP/SPLINTS THAT WERE APPLIED HERE, PLEASE DO NOT REMOVE THEM UNTIL YOU SEE YOUR PRIMARY CARE OR SPECIALTY. PATIENT WILL DISCHARGED BACK TO THE PSYCHIATRIC FACILITY FOR FURTHER EVALUATION REFERRALS: Referrals: ALYSSA MARTÍNEZ MD (PCP) Time of Disposition: 17:50 LORENE ARORA MD Aug 31, 2025 17:16
[2025-08-31 17:45] VITALS: BP 131/70; PULSE 78; RESP 16; TEMP 97.2; O2SAT 99
--- NOTE | 2025-08-31 17:47 | NUR ---
PT DSICHARGED TO [facility] BY YAQUELIN TRUJILLO
== END 2025-08-31 17:49 | disposition home or self-care (01) ==
LOC: EDH 12:31
DX: F20.9 Schizophrenia, unspecified (principal); F14.10 Cocaine abuse, uncomplicated; F31.9 Bipolar disorder, unspecified; F22 Delusional disorders; F41.9 Anxiety disorder, unspecified; J45.909 Unspecified asthma, uncomplicated; K21.9 Gastro-esophageal reflux disease without esophagitis; Z88.0 Allergy status to penicillin; Z79.899 Other long term (current) drug therapy; Z79.621 Long term (current) use of calcineurin inhibitor
CPT/HCPCS: 99284; 71045; 82550; 80305; 80048; 85025; 81003; 36415; G0481

== ENCOUNTER 2025-09-16 02:06 | Emergency (ER) | payer MEDICAID ==
[~2025-09-16] VITALS: Ht 162.6 cm; Wt 77.1 kg
--- NOTE | 2025-09-16 02:19 | ERN ---
ED Note History of Present Illness Stated Complaint: PAIN TO RIGHT FLANK Chief Complaint: Flank Pain Time Seen by MD: 02:13 Dictation: PATIENT IS A 60-YEAR-OLD FEMALE COMING IN TODAY WITH COMPLAINTS OF RIGHT UPPER QUADRANT PAIN INTERMITTENT AND COLICKY FOR THE LAST 3-4 DAYS. NO NAUSEA VOMITING NO CHEST PAIN NO BACK PAIN NO SOB. SHE HAD MAKIN AND CHANGE IN URINATION. STATES SHE HAS ALREADY HAD HER GALLBLADDER SURGICALLY REMOVED. SHE STATES LAST YEAR SHE WAS AT [facility] AND WAS DIAGNOSED WITH CIRRHOSIS HOWEVER HAS NEVER FOLLOW UP WITH THE DOCTOR AND ONLY GOES TO EMERGENCY ROOMS FOR HEALTH CARE. Allergies: Coded Allergies: Penicillins (Unverified Allergy, Unknown, 04/05/19) Home Meds Reported Medications Magnesium Hydroxide (Milk of Magnesium 30Ml) 30 Ml/Udcup Susp, 30 ML PO AD, ML 12/03/19 Omeprazole (Omeprazole) 40 Mg Capsule.dr, 40 MG PO DAILY, CAP 12/03/19 Lorazepam (Lorazepam) 0.5 Mg Tablet, 0.5 MG PO AD PRN for ANXIETY, TAB 05/14/18 Metoclopramide HCl (Reglan 10 mg Tab) 10 Mg Tablet, 10 MG PO QID, TAB 05/14/18 Temazepam (Restoril) 30 Mg Capsule, 30 MG PO HS, CAP 05/14/18 Cyclosporine (Restasis Multidose) 5.5 Ml Drops, 1 DROP .AD BID, DROP 02/16/17 Valproic Acid (Valproic Acid) 250 Mg Capsule, 250 MG PO TID, CAP 02/16/17 Past Medical History Past Medical History: Anxiety, Asthma, Bipolar, Depression, GERD, Liver Disease, Schizophrenia Surgical History: None Surgical History Other: BACK AND NECK PAIN Family History: Negative History: Not Applicable RN Note Reviewed/Agreed w/PFSH: Yes Review of System Dictation CONSTITUTIONAL: NEGATIVE EXCEPT FOR HPI HEAD/FACE: NEGATIVE EXCEPT FOR HPI EENT: NEGATIVE EXCEPT FOR HPI RESPIRATORY: NEGATIVE EXCEPT FOR HPI GASTROINTESTINAL/ABDOMINAL: NEGATIVE EXCEPT FOR HPI COLICKY RIGHT UPPER QUADRANT PAIN GENITOURINARY: NEGATIVE EXCEPT FOR HPI MUSCULOSKELETAL: NEGATIVE EXCEPT FOR HPI INTEGUMENTARY: NEGATIVE EXCEPT FOR HPI NEUROLOGICAL/PSYCH: NEGATIVE EXCEPT FOR HPI HEMATOLOGIC/LYMPHATIC: NEGATIVE EXCEPT FOR HPI ALL SYSTEMS NEGATIVE, EXCEPT NOTED ABOVE. 13 POINT REVIEW OF SYSTEMS ASSESSED AND ALL NEGATIVE EXCEPT FOR ABOVE. Initial Vital Sign VS Vital Signs Date Time Temp Pulse Resp B/P (MAP) Pulse Ox O2 Delivery O2 Flow Rate FiO2 09/16/25 02:13 98.1 67 18 174/66 99 Room Air 0 09/16/25 02:49 21 Physical Exam Dictation VITAL SIGNS REVIEWED GENERAL APPEARANCE: ALERT, ORIENTED X 3, NO ACUTE DISTRESS, WELL DEVELOPED, NOURISHED. HEAD AND FACE: NON-TRAUMATIC. EYES: PERRL, PINK CONJUNCTIVAS, EYELID NO TRAUMA, ANTERIOR CHAMBER WITH ARCUS SENILIS. EARS: PINNAS INTACT AND NO SIGNS OF TRAUMA OR ERYTHEMA EAR CANALS CLEAR AND NO DISCHARGE TM NO ERYTHEMA NOSE: NO DISCHARGE, NO BLEEDING. OROPHARYNX: MOUTH NORMAL, TONGUE PINK, PHARYNX CLEAR,NO ERYTHEMA, TONSILS NO EXUDATES, NO ABSCESSES NOTED, MUCOUS MEMBRANE MOIST NECK: SUPPLE, NON-TENDER, NO THYROMEGALY, NO MASSES, NO JVD, NO BRUITS BREAST:DEFERRED CHEST:NO TENDERNESS, NO CREPITUS, NO PARADOXICAL MOVEMENT, NO RETRACTIONS LUNGS:CLEAR, WELL-VENTILATED, SYMMETRIC, NO RALES, NO WHEEZING, NO RHONCHI, NO STRIDOR, GOOD BREATH SOUNDS BILATERALLY HEART: REGULAR RATE, REGULAR RHYTHM, NO MURMUR, NO GALLOPS VASCULAR: NO PERIPHERAL EDEMA, ABDOMEN: SOFT, POSITIVE BOWEL SOUNDS, NONDISTENDED, NO GUARDING, NONTENDER, NO REBOUND, NO MASSES NO HEPATOMEGALY, NO SPLENOMEGALY, NO ELAINE'S SIGN, NO HERNIAS. FOCAL TENDERNESS RECTAL: DEFERRED GENITAL: DEFERRED NEUROLOGICAL: NORMAL SPEECH, MOTOR FUNCTION INTACT, SENSORY FUNCTION INTACT MUSCULOSKELETAL: NECK NONTENDER, FULL RANGE OF MOTION, BACK NONTENDER, FULL RANGE OF MOTION, EXTREMITIES: NONTENDER, FULL RANGE OF MOTION SKIN: COLOR PINK, DRY, NO TURGOR, NO RASH, NO LACERATIONS, NO ABRASIONS, NO CONTUSIONS. LYMPHATIC: DEFERRED Results (Laboratory/Radiology) Laboratory/Radiology Laboratory Tests Test 09/16/25 02:20 White Blood Count 5.6 K/uL (4.8-10.8) Red Blood Count 4.21 MIL/uL (4.00-5.50) Hemoglobin 12.0 g/dL (12.0-16.0) Hematocrit 37.5 % (36-48) Mean Corpuscular Volume 89.1 fL (79-99) Mean Corpuscular Hemoglobin 28.5 pg (27.0-33.0) Mean Corpuscular Hemoglobin Concent 32.0 g/dL (32.0-36.0) Red Cell Distribution Width 12.6 % (11.0-15.5) Platelet Count 141 K/uL (130-400) Mean Platelet Volume 11.2 fL (7.5-10.5) H Immature Granulocyte % (Auto) 0.4 % (0-1) Neutrophils (%) (Auto) 70.1 % (40.0-77.0) Lymphocytes (%) (Auto) 19.0 % (21.0-51.0) L Monocytes (%) (Auto) 9.6 % (3.0-13.0) Eosinophils (%) (Auto) 0.5 % (0.0-8.0) Basophils (%) (Auto) 0.4 % (0.0-5.0) Neutrophils # (Auto) 4.0 K/uL (1.8-7.7) Lymphocytes # (Auto) 1.1 K/uL (1.0-4.8) Monocytes # (Auto) 0.5 K/uL (0.1-1.0) Eosinophils # (Auto) 0.03 K/uL (0.00-0.70) Basophils # (Auto) 0.02 K/uL (0.00-0.20) Absolute Immature Granulocyte (auto 0.02 K/uL (0-1) Nucleated Red Blood Cells 0.0 % (0.0-0.19) Sodium Level 141 mmol/L (136-145) Potassium Level 3.6 mmol/L (3.5-5.1) Chloride Level 105 mmol/L (101-111) Carbon Dioxide Level 27 mmol/L (21-32) Blood Urea Nitrogen 10 mg/dL (7-18) Creatinine 0.7 mg/dL (0.5-1.0) Glomerular Filtration Rate Calc 99 mL/min (>90) Random Glucose 114 mg/dL (70-105) H Total Calcium 9.2 mg/dL (8.5-10.1) Total Bilirubin 0.3 mg/dL (0.2-1.0) Aspartate Amino Transf (AST/SGOT) 21 U/L (10-37) Alanine Aminotransferase (ALT/SGPT) 18 U/L (12-78) Alkaline Phosphatase 135 U/L (50-136) Total Protein 7.1 g/dL (6.0-8.3) Albumin 3.5 g/dL (3.5-5.0) Labs Reviewed?: Yes ED Course ED Course Orders Procedure Category Date Status Time Cbc With Differential LAB 09/16/25 Complete 02:11 Comprehensive LAB 09/16/25 Complete Metabolic Panel 02:11 Acetaminophen 500mg PHA 09/16/25 Complete Tab (Tylenol 500mg T 02:30 Dicyclomine Hcl PHA 09/16/25 Complete (Bentyl 20mg Inj) 02:30 Acetaminophen 500mg PHA 09/16/25 Complete Tab (Tylenol 500mg T 02:41 Current Medications Medications (Trade) Dose Ordered Sig/Fran Route PRN Reason Start Time Stop Time Status Last Admin Dose Admin Acetaminophen (TYLenol 500MG TAB) 500 mg STK-MED ONCE .ROUTE 09/16/25 02:41 09/16/25 02:42 DC Acetaminophen (TYLenol 500MG TAB) 1,000 mg ONCE ONCE PO 09/16/25 02:30 09/16/25 02:21 DC Dicyclomine HCl (Bentyl 20mg Inj) 20 mg ONCE ONCE IM 09/16/25 02:30 09/16/25 02:31 DC Vital Signs Date Time Temp Pulse Resp B/P (MAP) Pulse Ox O2 Delivery O2 Flow Rate FiO2 09/16/25 02:49 98.1 83 18 162/74 98 Room Air* 0 21 09/16/25 02:13 98.1 67 18 174/66 99 Room Air 0 0250/PATIENT WILL BE DISCHARGED HOME WITH COMPLETELY NORMAL WORKUP DIAGNOSIS WE WILL BE NONSPECIFIC ABDOMINAL PAIN SHE WILL BE GIVEN BENTYL AND A LIST OF LOCAL DOCTORS TO FOLLOW UP IN THE NEXT 1- 2 DAYS. Medical Decision Making MDM MEDICAL DISCHARGE MAKING BASED ON BASIC LABS FOR RIGHT UPPER QUADRANT PAIN AND CIRRHOSIS. LABS ARE COMPLETELY UNREMARKABLE PATIENT DISCHARGED HOME WITH NONSPECIFIC ABDOMINAL PAIN BENTYL PRESCRIBED NO IMAGING INDICATED AND PATIENT WILL BE TOLD FOLLOW UP WITH ONE OF THE DOCTORS ON THE LIST PROVIDED HER. DX & DISP Disposition: Discharge Departure Impression: Primary Impression: Nonspecific abdominal pain Condition: Stable Scripts Dicyclomine HCl (Bentyl) 20 Mg Tab 20 MG PO Q6HPRN PRN for ABDOMINAL PAIN, #30 TAB Prov: GALA MACKEY PINION STAKER 09/16/25 Additional Instructions: FOLLOW-UP WITH PRIMARY CARE PROVIDER IN 1 TO 2 DAYS. TAKE MEDICATIONS DIRECTED HERE IN THE EMERGENCY ROOM. OKAY TO CONTINUE HOME MEDICATIONS UNLESS OTHERWISE DISCUSSED DURING YOUR VISIT IN THE EMERGENCY ROOM TODAY. RETURN TO YOUR NEAREST EMERGENCY ROOM IF SYMPTOMS WORSEN OR IF THERE IS NO IMPROVEMENT. CALL 911 IF YOU NEED IMMEDIATE ASSISTANCE. TAKE TYLENOL OR MOTRIN OVER-THE- COUNTER NEEDED AND IF NO CONTRAINDICATIONS ARE PRESENT. INCREASE ORAL HYDRATION. A WOUND CULTURE OR URINE CULTURE WAS ORDERED HERE IN THE EMERGENCY ROOM DEPARTMENT PLEASE FOLLOW-UP WITH PRIMARY CARE PROVIDER AND ADVISE THEM TO GET REPEAT PORTS FROM OUR FACILITY. IF YOU HAD ANY KATHARINE WRAP/SPLINTS THAT WERE APPLIED HERE, PLEASE DO NOT REMOVE THEM UNTIL YOU SEE YOUR PRIMARY CARE OR SPECIALTY. TAKE BENTYL DIRECTED FOR ABDOMINAL PAIN. FOLLOW UP WITH ONE OF THE DOCTORS ON THE LIST PROVIDED YOU IN THE NEXT 1-2 DAYS. Referrals: ALYSSA MARTÍNEZ MD (PCP) Time of Disposition: 02:54 I have reviewed the case, and I agree with, Diagnosis and Plan GALA MACKEY PINION STAKER Sep 16, 2025 02:19
[2025-09-16 02:32] LABS: IMMATURE GRANULOCYTE ABSOLUTE 0.02 K/uL (0-1); NUCLEATED RED BLOOD CELLS 0.0 % (0.0-0.19); PLATELET COUNT (AUTO) 141 K/uL (130-400); RED BLOOD CELL COUNT(AUTO) 4.21 MIL/uL (4.00-5.50); RED CELL DISTRIBUTION WIDTH 12.6 % (11.0-15.5); WHITE BLOOD COUNT (AUTO) 5.6 K/uL (4.8-10.8)
[2025-09-16 02:45] LABS: CREATININE 0.7 mg/dL (0.5-1.0); GLOMERULAR FILTR. RATE CALC 99.0 mL/min (>90); GLUCOSE,RANDOM 114.0 mg/dL (70-105); SODIUM SERUM 141.0 mmol/L (136-145); UREA NITROGEN, BLOOD 10.0 mg/dL (7-18)
[2025-09-16 02:49] VITALS: BP 162/74; PULSE 83; RESP 18; TEMP 98; O2SAT 98
[2025-09-16 02:51] LABS: ASPARTATE AMINOTRANSFERASE 21.0 U/L (10-37); TOTAL PROTEIN, SERUM 7.1 g/dL (6.0-8.3)
[2025-09-16] MEDS: DICYCLOMINE 20MG (10MG/ML) AMP IM ONE (02:54)
[2025-09-16] MEDS ORDERED: DICY20TA2 PO (02:55)
== END 2025-09-16 03:30 | disposition home or self-care (01) ==
LOC: EDH 02:06
DX: R10.11 Right upper quadrant pain (principal); F20.9 Schizophrenia, unspecified; F31.9 Bipolar disorder, unspecified; F41.9 Anxiety disorder, unspecified; J45.909 Unspecified asthma, uncomplicated; Z79.621 Long term (current) use of calcineurin inhibitor; Z79.899 Other long term (current) drug therapy; Z88.0 Allergy status to penicillin
CPT/HCPCS: 99283; 80053; 85025; 36415; 96372; J0500